=== PATIENT | female | born 1985 | race Caucasian/White ===

== ENCOUNTER → 2019-01-18 | Outpatient (CLI) | payer BC | END | disposition home or self-care (01) | LOC: LAB 15:00 | PROVIDERS: ATTEND Specialist | DX: R87.613 High grade squamous intraepithelial lesion on cytologic smear of cervix (HGSIL) (principal) ==

== ENCOUNTER → 2022-08-21 | Outpatient (CLI) | payer BC | END | disposition home or self-care (01) | LOC: LAB 12:21 | PROVIDERS: ATTEND Obstetrics & Gynecology Obstetrics | DX: N76.0 Acute vaginitis (principal) | CPT/HCPCS: 86695; 86696 ==

== ENCOUNTER → 2024-11-19 | Outpatient (CLI) | payer BC ==
[2024-11-19 12:08] LABS: Hemoglobin 12.2 g/dL (12.2-16.2); White Blood Cell 8.5 10^3/uL (4.4-10.8)
[2024-11-19 12:10] LABS: Hematocrit 35.4 % (36.0-46.0); Mean Corpuscular Hemoglobin 28.5 pg (28.0-32.0); Mean Corpuscular Hgb Conc. 34.6 g/dL (32.0-36.0); Mean Corpuscular Volume 82.3 fL (80.0-100.0)
[2024-11-19 12:53] LABS: Basophils % (manual) 0 (0.0-2.0); Myelocytes % 0; Promyelocytes % 0
[2024-11-19 13:21] LABS: Albumin 4.6 g/dL (3.2-4.8); Anion Gap 7 (5-15); Calcium 10.1 mg/dL (8.7-10.4); Carbon Dioxide 26 mmol/L (20-31); Chloride 105 mmol/L (98-107); Cholesterol 150 mg/dL (< 200); Glucose 97 mg/dL (74-106); HDL Cholesterol 40 mg/dL (40-59); LDL Cholesterol 93 mg/dL (< 100); Potassium 4.2 mmol/L (3.5-5.1); Sodium 138 mmol/L (136-145); Triglycerides 107 mg/dL (< 150)
[2024-11-19 13:22] LABS: Alanine Aminotransferase 55 U/L (7-40); Alkaline Phosphatase 122 U/L (46-116); Aspartate Aminotransferase 43 U/L (13-40); Bilirubin, Total 0.5 mg/dL (0.2-1.0); Blood Urea Nitrogen 9 mg/dL (9-23)
[2024-11-19 13:24] LABS: Folate (Folic Acid) 6.16 ng/mL (>5.38)
[2024-11-19 13:27] LABS: Band Neutrophils % (manual) 4; Blast Cells 2; Eosinophils % (manual) 1 (0-7); Lymphocytes % (manual) 21 (10.0-50.0); Metamyelocytes % 1; Monocytes % (manual) 46 (0-12); Reactive Lymphocytes 2
[2024-11-19 13:30] LABS: Platelet Count (auto) 21 10^3/uL (140-450); Platelet Estimate Markedly Decreased
== END | disposition home or self-care (01) ==
LOC: LAB 11:50
PROVIDERS: ATTEND Nurse Practitioner
DX: I10 Essential (primary) hypertension (principal); R73.9 Hyperglycemia, unspecified
CPT/HCPCS: 36415; 80053; 80061; 82306; 82607; 82746; 83036; 84443; 85007; 85027

== ENCOUNTER 2024-11-21 14:29 | Inpatient (IN) | payer BC ==
[~2024-11-21] VITALS: Ht 165.1 cm; Wt 63.8 kg
--- NOTE | 2024-11-21 15:38 | ED.PDOC ---
History of Present Illness HPI Comments 39Y F presents to ED with chief complaint back pain x1week. Additional symptoms include nausea and vomiting. Pt denies chest pain, SOB, diarrhea, and dysuria. Pt was provided Baclofen by PCP which helped alleviate the pain temporarily. However, pt states pain became worse on Friday. Pt's PCP also ordered a x-ray which came back with normal results. Pt is currently on menstrual cycle. Chief Complaint: Back Pain Time Seen by MD: 15:12 Primary Care Provider: BRENDA Fiore Notes: Nurses Notes, Medications, Allergies Allergies: Coded Allergies: NO KNOWN ALLERGIES (Unverified , 11/21/24) Home Meds No Active Prescriptions or Reported Meds Information Source: Patient Mode of Arrival: Ambulatory Severity: Moderate Timing: Weeks Duration: Since onset Past Medical History PAST MEDICAL HISTORY: Denies Surgical History: Denies all surgeries [employer] History: No Pertinent [employer] History Family History Family History: Unknown Social History Smoker: Non-Smoker Alcohol: Denies ETOH Use Drugs: Denies Drug Use Lives In: Home Constitutional: denies: chills, diaphoresis, fatigue, fever, malaise, sweats, weakness, others EENTM: denies: blurred vision, double vision, ear bleeding, ear discharge, ear drainage, ear pain, ear ringing, eye pain, eye redness, hearing loss, mouth pain, mouth swelling, nasal discharge, nose bleeding, nose congestion, nose pain, photophobia, tearing, throat pain, throat swelling, voice changes, others Respiratory: denies: cough, hemoptysis, orthopnea, SOB at rest, shortness of breath, SOB with excertion, stridor, wheezing, others Cardiovascular: denies: chest pain, dizzy spells, diaphoresis, Dyspnea on exertion, edema, irregular heart beat, left arm pain, lightheadedness, palpitations, PND, syncope, others Gastrointestinal: reports: nausea, vomiting; denies: abdomen distended, abdominal pain, blood streaked bowels, constipated, diarrhea, dysphagia, difficulty swallowing, hematemesis, melena, poor appetite, poor fluid intake, rectal bleeding, rectal pain, others Genitourinary: denies: abnormal vagina bleeding, burning, dyspareunia, dysuria, flank pain, frequency, hematuria, incontinence, pain, , vagina discharge, urgency, others Neurological: denies: dizziness, fainting, headache, left sided numbness, left sided weakness, numbness, paresthesia, pre-existing deficit, right sided numbness, right sided weakness, seizure, speech problems, tingling, tremors, weakness, others Musculoskeletal: reports: back pain; denies: gout, joint pain, joint swelling, muscle pain, muscle stiffness, neck pain, others Integumetry: denies: bruises, change in color, change in hair/nails, dryness, laceration, lesions, lumps, rash, wounds, others Allergic/Immunocompromised: denies: Difficulty Healing, Frequent Infections, Hives, Itching, others Hematologic/Lymphatic: denies: anemia, blood clots, easy bleeding, easy bruising, swollen glands, others Endocrine: denies: excessive hunger, excessive sweating, excessive thirst, excessive urination, flushing, intolerance to cold, intolerance to heat, unexplained weight gain, unexplained weight loss, others Psychiatric: denies: anxiety, bipolar disorder, depression, hopeless, panic disorder, schizophrenia, sleepless, suicidal, others All Other Systems: Reviewed and Negative Physical Exam General Appearance: Moderate Distress HEENT: Normal ENT Inspection, Pharynx Normal, TMs Normal Neck: Full Range of Motion, Non-Tender, Normal, Normal Inspection Respiratory: Chest Non-Tender, Lungs Clear, No Accessory Muscle Use, No Respiratory Distress, Normal Breath Sounds Cardiovascular: No Edema, No JVD, No Murmur, No Gallop, Normal Peripheral Pulses, Regular Rate/Rhythm Breast Exam: Deferred Gastrointestinal: No Organomegaly, Non Tender, No Pulsatile Mass, Normal Bowel Sounds, Soft Genitalia: Deferred Pelvic: Deferred Rectal: Deferred Extremities: No calf tenderness, Normal capillary refill, Normal inspection, Normal range of motion, Non-tender, No pedal edema Musculoskeletal : Apperance: Normal Neurologic: Alert, benefits administrator II-XII nml as Tested, No Motor Deficits, Normal Affect, Normal Mood, No Sensory Deficits Cerebellar Function: NOT DONE Reflexes: NOT DONE Skin: Dry, Normal Color, Warm Lymphatic: No Adenopathy Was a procedure done? Was a procedure done?: No Differential Dx Considerations may include: Pyelonephritis, musculoskeletal strain, intraabdominal pathology, cancer, diverticulitis X-Ray, Labs, Meds, VS Vital Signs Date Time Temp Pulse Resp B/P (MAP) Pulse Ox O2 Delivery O2 Flow Rate FiO2 12/29/24 20:00 99.1 119 26 124/78 (93) 99 99.1 11/21/24 19:20 117 24 117/81 11/21/24 19:19 117 24 117/81 (93) 99 11/21/24 19:04 121 18 120/86 11/21/24 18:39 122 22 120/80 11/21/24 18:23 98 22 100 Nasal Cannula* 2 28 11/21/24 17:54 110 22 112/80 11/21/24 17:14 97.3 134 18 111/80 (90) 98 97.3 11/21/24 14:54 98.5 134 24 112/80 (91) 99 Lab Test 11/21/24 20:48 11/21/24 15:38 11/21/24 15:02 Range/Units White Blood Count 6.8 # 13.0 #H 4.4-10.8 10^3/uL Red Blood Count 3.49 L 4.30 4.0-5.20 10^6/uL Hemoglobin 10.1 #L 12.4 12.2-16.2 g/dL Hematocrit 28.8 #L 35.9 L 36.0-46.0 % Mean Corpuscular Volume 82.5 83.6 80.0-100.0 fL Mean Corpuscular Hemoglobin 29.0 28.8 28.0-32.0 pg Mean Corpuscular Hemoglobin Concent 35.1 34.4 32.0-36.0 g/dL Red Cell Distribution Width 13.2 12.8 11.8-14.3 % Platelet Count 10 *L 17 *L 140-450 10^3/uL Mean Platelet Volume 10.3 7.0 6.9-10.8 fL Neutrophils (%) (Auto) 12.4 L 37.0-80.0 % Lymphocytes (%) (Auto) 9.2 L 10.0-50.0 % Monocytes (%) (Auto) 77.9 H 0.0-12.0 % Eosinophils (%) (Auto) 0.4 0.0-7.0 % Basophils (%) (Auto) 0.1 0.0-2.0 % Neutrophils # (Auto) 0.8 L 1.6-8.6 10 ^3/uL Lymphocytes # (Auto) 0.6 0.4-5.4 10 ^3/uL Monocytes # (Auto) 5.3 H 0-1.3 10 ^3/uL Eosinophils # (Auto) 0 0-0.8 10 ^3/uL Basophils # (Auto) 0 0-0.2 10 ^3/uL Nucleated Red Blood Cells 0.7 2.0 % Differential Total Cells Counted 100.0 100 Neutrophils % (Manual) 14 L 37.0-80.0 Band Neutrophils % (Manual) 3 Lymphocytes % (Manual) 47 10.0-50.0 Monocytes % (Manual) 2 0-12 Eosinophils % (Manual) 0 0-7 Basophils % (Manual) 0 0.0-2.0 Metamyelocytes % (manual) 0 Myelocytes % (Manual) 0 Promyelocytes % (Manual) 0 Blast Cells % (Manual) 34 Reactive Lymphocytes 0 Platelet Estimate Markedly decreased Sodium Level 140 136-145 mmol/L Potassium Level 4.4 3.5-5.1 mmol/L Chloride Level 107 98-107 mmol/L Carbon Dioxide Level 21 20-31 mmol/L Anion Gap 12 5-15 Blood Urea Nitrogen 13 9-23 mg/dL Creatinine 1.11 #H 0.550-1.02 mg/dL Glomerular Filtration Rate Calc 65 >90 mL/min BUN/Creatinine Ratio 11.7 10.0-20.0 Serum Glucose 159 H 74-106 mg/dL Calcium Level 10.8 H 8.7-10.4 mg/dL Total Bilirubin 0.7 0.2-1.0 mg/dL Aspartate Amino Transferase (AST) 64 H 13-40 U/L Alanine Aminotransferase (ALT) 48 H 7-40 U/L Alkaline Phosphatase 143 H 46-116 U/L Lactate Dehydrogenase 1104 H 120-246 U/L Total Protein 7.4 5.7-8.2 g/dL Albumin 5.1 H 3.2-4.8 g/dL Lipase 26 12-53 U/L Urine Color Light-orange Yellow Urine Clarity Turbid H Clear Urine pH 6.0 5.0-9.0 Urine Specific [place] 1.036 H 1.001-1.035 Urine Protein 2+ H Negative Urine Ketones 2+ H Negative Urine Blood 3+ H Negative /uL Urine Nitrite Negative Negative Urine Bilirubin Negative Negative Urine Urobilinogen 2 H Negative mg/dL Urine Leukocyte Esterase Negative Negative /uL Urine RBC 729 0 - 4 /hpf Urine WBC 18 0 - 5 /hpf Urine Squamous Epithelial Cells Few <5 /hpf Urine Bacteria None seen None Seen /hpf Urine Hyaline Casts Many 0 - 2 /lpf Urine Mucus Few None Seen Urine Glucose Trace Normal mg/dL Urine Test Negative Negative Urine Opiates Screen Neg NEGATIVE Urine Fentanyl Screen Neg NEGATIVE Urine Barbiturates Screen Neg NEGATIVE Urine Phencyclidine Screen Neg NEGATIVE Urine Amphetamines Screen Neg NEGATIVE Urine Benzodiazepines Screen Neg NEGATIVE Urine Cocaine Screen Neg NEGATIVE Urine Cannabinoids Screen Neg NEGATIVE [place] [address] Ph: [phone] DIAGNOSTIC IMAGING Diagnostic Imaging Report : [id number] Signed PATIENT: VICTOR M YUSUF ACCT: [id number] UNIT: [id number] : 1985 LOC: ER ROOM / BED: / AGE / SEX: 39 / F ADM STATUS: REG ER SERVICE 1824 ORDERING PHYSICIAN: KHADAR TRAORE MD PROCEDURE(s): ABPL - CT AB PEL WO CON-NO ORAL OR IV REASON: severe lower back pain ORDER NUMBER(s): [id number], ACCESSION NUMBER(s): [id number] Exam: CT CT AB PEL WO CON-NO ORAL OR IV History: severe lower back pain Comparison Study: None available at time of dictation. TECHNIQUE: Multidetector CT of the abdomen was performed from lung bases to pubic symphysis. Imaging was performed without IV contrast. Axial, coronal and sagittal multiplanar reformats were obtained from the axial data set by the technologist. No sagittal or coronal reconstructions. Radiation Dose Information: CT Dose: CTDI volume is 6.83 mGy. Dose-length product is 359.51 mGy*cm FINDINGS: Evaluation of solid organs is limited due to lack of intravenous contrast use. Findings: Lung Bases: No acute or significant lung base finding. Normal heart size. No pleural or pericardial effusion. Liver: The liver is normal in size. No focal lesions. Gallbladder and Biliary Tree: Thin layer of radiopaque material posteriorly in the gallbladder may represent sludge or small stones Spleen: Unremarkable Pancreas: The pancreas is grossly normal in appearance. Adrenal Glands: Unremarkable Kidneys: Kidneys are grossly normal without calculi or hydronephrosis. Bladder: Grossly unremarkable for degree of distention. Bowel: The stomach is grossly normal in appearance. Small bowel and colon are normal in caliber and distribution. The appendix is not visualized; however, no secondary findings of acute appendicitis identified. Ascites: Absent Lymphadenopathy: No mesenteric, retroperitoneal or periportal lymphadenopathy. Abdominal Wall and Mesentery: Unremarkable. Vasculature: The visualized abdominal aorta is normal in size and caliber. Evaluation of abdominal and pelvic vessels is limited due to lack of intravenous contrast. Pelvic Organs: Unremarkable Musculoskeletal: No aggressive focal bony lesions, acute fractures or dislocation. Soft tissues: Unremarkable IMPRESSION: 1. Thin layer of radiopaque material layering posteriorly in the gallbladder may represent small stones or sludge. Radiation optimization: All CT scans at this facility use at least one of these dose optimization techniques: automated exposure control mA and/or kV adjustment per patient size (includes targeted exams where dose is matched to clinical indication) or iterative reconstruction. ATED BY: LATANYA GALVAN Jr., DO DICTATED DATE/TIME: 11/21/241901 SIGNED BY: LATANYA GALVAN Jr., SIGNED DATE/TIME: 11/21/241901 CC: Time of 1ST Reevaluation: 15:42 Reevaluation 1ST: Unchanged Patient Education/Counseling: Diagnosis, Treatment Family Education/Counseling: No Family Present Departure 1 Departure Time of Disposition: 21:52 (Patient with concern for malignancy will admit for further workup) Impression: Primary Impression: Weakness Additional Impressions: Thrombocytopenia Abdominal pain Qualified Codes: R10.84 - Generalized abdominal pain Disposition: ADMITTED INPATIENT Admit to: Med Surg Condition: Serious e-Prescriptions No Active Prescriptions or Reported Meds Critical Care Note Critical Care Time?: No Stability Stability form required: No Heart Score Heart Score: Heart Score Response (Comments) Value History N/A 0 EKG N/A 0 Age N/A 0 Risk Factors N/A 0 Troponin N/A 0 Total 0 I personally scribed for KHADAR TRAORE MD ([facility] on 11/21/24 at 15:38. Electronically submitted by Viki Alfaro ([email or web address]). I personally scribed for KHADAR TRAORE MD ([facility]) on 11/21/24 at 19:36. Electronically submitted by Viki Alfaro ([facility]). KHADAR TRAORE MD Nov 21, 2024 15:38
[2024-11-21 15:42] LABS: Urine Bacteria None Seen /hpf (None Seen)
[2024-11-21 16:09] LABS: Urine Blood 3+ /uL (Negative); Urine Clarity Turbid (Clear); Urine Color Light-Orange (Yellow); Urine Hyaline Cast MANY /lpf (0 - 2); Urine Mucus FEW (None Seen); Urine Protein, UAD 2+ (Negative); Urine Specific Gravity 1.036 (1.001-1.035); Urine Urobilinogen 2 mg/dL (Negative); Urine WBC 18 /hpf (0 - 5)
[2024-11-21 16:12] LABS: Anion Gap 12 (5-15); BUN/Creatinine Ratio 11.7 (10.0-20.0); Bilirubin, Total 0.7 mg/dL (0.2-1.0); Blood Urea Nitrogen 13 mg/dL (9-23); Carbon Dioxide 21 mmol/L (20-31); Chloride 107 mmol/L (98-107); Lipase 26 U/L (12-53); Potassium 4.4 mmol/L (3.5-5.1); Sodium 140 mmol/L (136-145); Total Protein 7.4 g/dL (5.7-8.2)
[2024-11-21 16:14] LABS: Alanine Aminotransferase 48 U/L (7-40); Albumin 5.1 g/dL (3.2-4.8); Alkaline Phosphatase 143 U/L (46-116); Aspartate Aminotransferase 64 U/L (13-40); Calcium 10.8 mg/dL (8.7-10.4); Glucose 159 mg/dL (74-106)
[2024-11-21 16:19] LABS: Mean Corpuscular Volume 83.6 fL (80.0-100.0)
[2024-11-21 16:21] LABS: Hematocrit 35.9 % (36.0-46.0); Hemoglobin 12.4 g/dL (12.2-16.2); Mean Corpuscular Hemoglobin 28.8 pg (28.0-32.0); Mean Corpuscular Hgb Conc. 34.4 g/dL (32.0-36.0); Red Cell Distribution Width 12.8 % (11.8-14.3)
[2024-11-21 16:30] LABS: Basophils % (manual) 0 (0.0-2.0); Eosinophils % (manual) 0 (0-7); Metamyelocytes % 0; Platelet Count (auto) 17 10^3/uL (140-450); Promyelocytes % 0; Reactive Lymphocytes 0
[2024-11-21 16:55] LABS: Platelet Estimate Markedly Decreased
[2024-11-21] MEDS: SODIUM CHLORIDE 0.9% 1,000 ML IV ONE (17:53)
[2024-11-21] MEDS: ONDANSETRON HCL 4 MG/2 ML VIAL IV ONE (17:53)
[2024-11-21] MEDS: MORPHINE SULFATE 4 MG/ML SYR/VIAL IV ONE (17:54)
[2024-11-21 18:23] VITALS: PULSE 98; RESP 22; O2SAT 100
[2024-11-21] MEDS: HYDROmorphone HCL 2 MG/ML VL/or syr IV ONE (19:04)
--- NOTE | 2024-11-21 19:04 | DVH ---
Exam: CT CT AB PEL WO CON-NO ORAL OR IV History: severe lower back pain Comparison Study: None available at time of dictation. TECHNIQUE: Multidetector CT of the abdomen was performed from lung bases to pubic symphysis. Imaging was performed without IV contrast. Axial, coronal and sagittal multiplanar reformats were obtained fr om the axial data set by the technologist. No sagittal or coronal reconstructions. Radiation Dose Information: CT Dose: CTDI volume is 6.83 mGy. Dose-length product is 359.51 mGy*cm FINDINGS: Evaluation of solid organs is limited due to lack of intravenous contrast use. Findings: Lung Bases: No acute or significant lung base finding. Normal heart size. No pleural or pericardial effusion. Liver: The liver is normal in size. No focal lesions. Gallbladder and Biliary Tree: Thin layer of radiopaque material posteriorly in the gallbladder may re present sludge or small stones Spleen: Unremarkable Pancreas: The pancreas is grossly normal in appearance. Adrenal Glands: Unremarkable Kidneys: Kidneys are grossly normal without calculi or hydronephrosis. Bladder: Grossly unremarkable for degree of distention. Bowel: The stomach is grossly normal in appearance. Small bowel and colon are normal in caliber and d istribution. The appendix is not visualized; however, no secondary findings of acute appendicitis id entified. Ascites: Absent Lymphadenopathy: No mesenteric, retroperitoneal or periportal lymphadenopathy. Abdominal Wall and Mesentery: Unremarkable. Vasculature: The visualized abdominal aorta is normal in size and caliber. Evaluation of abdominal a nd pelvic vessels is limited due to lack of intravenous contrast. Pelvic Organs: Unremarkable Musculoskeletal: No aggressive focal bony lesions, acute fractures or dislocation. Soft tissues: Unremarkable IMPRESSION: 1. Thin layer of radiopaque material layering posteriorly in the gallbladder may represent small ston es or sludge. Radiation optimization: All CT scans at this facility use at least one of these dose optimization natalia hniques: automated exposure control mA and/or kV adjustment per patient size (includes targeted exam s where dose is matched to clinical indication) or iterative reconstruction.
[2024-11-21] MEDS: SODIUM CHLORIDE 0.9% 2,000 ML IV ONE (20:21)
[2024-11-21 21:01] LABS: Eosinophils # (auto) 0 10 ^3/uL (0-0.8); Hemoglobin 10.1 g/dL (12.2-16.2); Nucleated Red Blood Cells % 0.7 %
[2024-11-21 21:03] LABS: Basophils # (auto) 0 10 ^3/uL (0-0.2); Basophils % (auto) 0.1 % (0.0-2.0); Eosinophils % (auto) 0.4 % (0.0-7.0); Hematocrit 28.8 % (36.0-46.0); Lymphocytes # (auto) 0.6 10 ^3/uL (0.4-5.4); Lymphocytes % (auto) 9.2 % (10.0-50.0); Mean Corpuscular Hgb Conc. 35.1 g/dL (32.0-36.0); Mean Corpuscular Volume 82.5 fL (80.0-100.0); Monocytes # (auto) 5.3 10 ^3/uL (0-1.3); Neutrophils # (auto) 0.8 10 ^3/uL (1.6-8.6); Neutrophils % (auto) 12.4 % (37.0-80.0); Red Blood Cells 3.49 10^6/uL (4.0-5.20); Red Cell Distribution Width 13.2 % (11.8-14.3); White Blood Cell 6.8 10^3/uL (4.4-10.8)
[2024-11-21 21:05] LABS: Monocytes % (auto) 77.9 % (0.0-12.0)
[2024-11-21 21:09] LABS: Platelet Count (auto) 10 10^3/uL (140-450)
[2024-11-21] MEDS: CYCLOBENZAPRINE HCL 10 MG TAB PO ONE (21:36)
[2024-11-21 22:07] LABS: Amphetamine Screen, Urine Neg (NEGATIVE); Barbiturate Scree,Urine Neg (NEGATIVE); Benzodiazephine Screen, Urine Neg (NEGATIVE); Cannabinoid Screen, Urine Neg (NEGATIVE); Cocaine Screen, Urine Neg (NEGATIVE); Opiate Scree,Urine Neg (NEGATIVE); Phencyclidine Screen, Urine Neg (NEGATIVE)
[2024-11-21 22:30] LABS: INR 1.08 (0.9-1.15); Partial Thromboplastin Time 29.5 SEC (24.5-34.5); Prothrombin Time 11.4 sec (9.3-11.8)
[2024-11-21 22:39] VITALS: PULSE 109; RESP 24; O2SAT 100
[2024-11-21] MEDS: cefTRIAXone 1GM/50ML D5W 50 ML IV ONE (23:47)
[2024-11-22] VITALS (11 sets, daily range): BP systolic 114–130; BP diastolic 67–87; PULSE 119–143; RESP 18–22; TEMP 38.2; O2SAT 92–98
[2024-11-22 00:31] LABS: Erythrocyte Sedimentation Rate 44 mm/hr (0-20)
[2024-11-22] MEDS: HYDROmorphone HCL 2 MG/ML VL/or syr IV ONE (01:07)
[2024-11-22 01:14] LABS: COVID19 ANTIGEN SOFIA FIA NEGATIVE (NEGATIVE); Rapid Influenza A Negative (Negative); Rapid Influenza B Negative (Negative)
--- NOTE | 2024-11-22 03:39 | DVHHPRES ---
History of Present Illness Resident Creating Document: KASSYPavelJORDAN ZhaoTHI RESIDENT History of Present Illness Patient is a 39-year-old female with no significant past medical history came to the ED with a chief complaint of worsening back pain since the last 7 days. Patient reports about a week ago she started having spasmodic lower back pain which was initially tolerable and of the week got worse and yesterday it was intolerable for which she came to the ER. Patient also reports getting easily bruised which she has noticed since the past about 2 weeks and petechiae on her legs and face. Patient's had her menstrual period started yesterday reports heavy bleeding. She reports history of nosebleeds once in a blue perez ( 5-6 months ). Patient denied history of weight loss, night sweats, fever. Patient reports to be in single relationship her and has 2 kids. Past medical history: None Past surgical history: None Social history: Patient was with , has 2 kids and denies smoking, alcohol, drug use Home medications: None Review of Systems Review of Systems Patient complains of intermittent severe spasmodic lower back pain. Reports she has soaked about 5-6 pads since yesterday when she started her menstrual cycle. Denies hematochezia or melena. Denies blood in vomitus. Denies headache, dizziness, shortness of breath, chest pain. Allergies: Coded Allergies: NO KNOWN ALLERGIES (Unverified , 11/21/24) Medications Current Medications Medications Dose Ordered Sig/Yris Route Start Time Stop Time Status Last Admin Dose Admin Hydromorphone HCl 0.5 mg Q4HPRN PRN IV 11/22/24 01:45 Morphine Sulfate 2 mg Q4HPRN PRN IV 11/22/24 01:45 Exam Vital Signs Vital Signs Date Time Temp Pulse Resp B/P (MAP) Pulse Ox O2 Delivery O2 Flow Rate FiO2 11/22/24 03:04 98.9 119 18 122/85 98.9 11/21/24 23:51 94 11/21/24 22:39 Room Air* 0 21 Exam Physical Examination Constitutional: Patient was alert and oriented to time, place and person and appears to be in [id number] distress because of the lower back pain. Gen - no pallor, no icterus, no cyanosis, no clubbing, no LAD, no edema . Skin - Patients skin is warm and dry, petechiae on legs and face seen less than 0.5 cm in size HEENT - normocephalic, atraumatic, dry mucous membranes. Neck - full ROM, no LAD, no JVD Pulmonary - B/L vesicular breath sounds. no crackles , no wheezing, no stridor. cardiovascular - normal S1,S2 heard. no murmurs heard. peripheral pulses radial 2+, pedal 2+. GI - soft abdomen without tenderness to palpation . no hepatospleenomegaly. Bowel sounds normoactive Neurological - Bilateral upper extremity strength 5/5, bilateral lower extremity strength 5/5, no facial droop, normal speech, no tremor, no sensory deficiets. ## patient has minimal point tenderness in the lower back in the middle and in the paraspinal muscles. Straight leg raise test is negative Labs/Xrays Labs Test 11/22/24 00:45 11/22/24 00:14 11/21/24 23:45 11/21/24 21:53 Range/Units C-Reactive Protein High Sensitivity 9.42 H <1.0 mg/dL Influenza Type A Antigen Negative Negative Influenza Type B Antigen Negative Negative SARS-CoV-2 Antigen (Rapid) Negative NEGATIVE Erythrocyte Sedimentation Rate 44 H 0-20 mm/hr Prothrombin Time 11.4 9.3-11.8 sec Prothrombin Time INR 1.08 0.9-1.15 Activated Partial Thromboplast Time 29.5 24.5-34.5 SEC Test 11/21/24 20:48 11/21/24 15:38 11/21/24 15:02 Range/Units White Blood Count 6.8 # 4.4-10.8 10^3/uL Red Blood Count 3.49 L 4.0-5.20 10^6/uL Hemoglobin 10.1 #L 12.2-16.2 g/dL Hematocrit 28.8 #L 36.0-46.0 % Mean Corpuscular Volume 82.5 80.0-100.0 fL Mean Corpuscular Hemoglobin 29.0 28.0-32.0 pg Mean Corpuscular Hemoglobin Concent 35.1 32.0-36.0 g/dL Red Cell Distribution Width 13.2 11.8-14.3 % Platelet Count 10 *L 140-450 10^3/uL Mean Platelet Volume 10.3 6.9-10.8 fL Neutrophils (%) (Auto) 12.4 L 37.0-80.0 % Lymphocytes (%) (Auto) 9.2 L 10.0-50.0 % Monocytes (%) (Auto) 77.9 H 0.0-12.0 % Eosinophils (%) (Auto) 0.4 0.0-7.0 % Basophils (%) (Auto) 0.1 0.0-2.0 % Neutrophils # (Auto) 0.8 L 1.6-8.6 10 ^3/uL Lymphocytes # (Auto) 0.6 0.4-5.4 10 ^3/uL Monocytes # (Auto) 5.3 H 0-1.3 10 ^3/uL Eosinophils # (Auto) 0 0-0.8 10 ^3/uL Basophils # (Auto) 0 0-0.2 10 ^3/uL Nucleated Red Blood Cells 0.7 % Differential Total Cells Counted 100.0 100 Neutrophils % (Manual) 6 L 37.0-80.0 Band Neutrophils % (Manual) 6 Lymphocytes % (Manual) 45 10.0-50.0 Monocytes % (Manual) 42 H 0-12 Eosinophils % (Manual) 0 0-7 Basophils % (Manual) 0 0.0-2.0 Metamyelocytes % (manual) 0 Myelocytes % (Manual) 1 Promyelocytes % (Manual) 0 Blast Cells % (Manual) 0 Reactive Lymphocytes 0 Platelet Estimate Markedly decreased Sodium Level 140 136-145 mmol/L Potassium Level 4.4 3.5-5.1 mmol/L Chloride Level 107 98-107 mmol/L Carbon Dioxide Level 21 20-31 mmol/L Anion Gap 12 5-15 Blood Urea Nitrogen 13 9-23 mg/dL Creatinine 1.11 #H 0.550-1.02 mg/dL Glomerular Filtration Rate Calc 65 >90 mL/min BUN/Creatinine Ratio 11.7 10.0-20.0 Serum Glucose 159 H 74-106 mg/dL Calcium Level 10.8 H 8.7-10.4 mg/dL Total Bilirubin 0.7 0.2-1.0 mg/dL Aspartate Amino Transferase (AST) 64 H 13-40 U/L Alanine Aminotransferase (ALT) 48 H 7-40 U/L Alkaline Phosphatase 143 H 46-116 U/L Lactate Dehydrogenase 1104 H 120-246 U/L Total Protein 7.4 5.7-8.2 g/dL Albumin 5.1 H 3.2-4.8 g/dL Lipase 26 12-53 U/L Urine Color Light-orange Yellow Urine Clarity Turbid H Clear Urine pH 6.0 5.0-9.0 Urine Specific [place] 1.036 H 1.001-1.035 Urine Protein 2+ H Negative Urine Ketones 2+ H Negative Urine Blood 3+ H Negative /uL Urine Nitrite Negative Negative Urine Bilirubin Negative Negative Urine Urobilinogen 2 H Negative mg/dL Urine Leukocyte Esterase Negative Negative /uL Urine RBC 729 0 - 4 /hpf Urine WBC 18 0 - 5 /hpf Urine Squamous Epithelial Cells Few <5 /hpf Urine Bacteria None seen None Seen /hpf Urine Hyaline Casts Many 0 - 2 /lpf Urine Mucus Few None Seen Urine Glucose Trace Normal mg/dL Urine Test Negative Negative Urine Opiates Screen Neg NEGATIVE Urine Fentanyl Screen Neg NEGATIVE Urine Barbiturates Screen Neg NEGATIVE Urine Phencyclidine Screen Neg NEGATIVE Urine Amphetamines Screen Neg NEGATIVE Urine Benzodiazepines Screen Neg NEGATIVE Urine Cocaine Screen Neg NEGATIVE Urine Cannabinoids Screen Neg NEGATIVE Assessment/Plan Assessment/Plan # Thrombocytopenia likely ?Secondary Acute Leukemia? # SIRS positive - platelet count [id number] - 1 unit pheresis platelets given - CBC showed monocytosis - elevated ESR and CRP - elevated lactate dehydrogenase - acute hepatitis panel pending - CYNDI panel pending - haptoglobin pending - direct Alonso test - peripheral blood smear pending - HIV pending - Heme-Onc consulted # Lower back pain likely musculoskeletal - CT abdomen pelvis without contrast shows no aggressive focal bony lesions, acute fractures or dislocations - lumbar CT/MRI can be done - patient given Flexeril - morphine for moderate pain - Dilaudid for severe pain the patient reports nothing else works # Normocytic normochromic anemia - monitor H&H - iron panel pending Goals of care discussed with the patient and the for over 20 minutes. Full code Plan discussed with Dr. Benavidez Plan discussed with: Patient My Orders Orders - FRANK ALMONTE RESIDENT Procedure Category Date Status Time Admit ADMIT 11/21/24 Transmitted 21:29 Notify Of Changes [facility] 11/21/24 In Process From Base 21:29 Emergency Dysrhythmia [facility] 11/21/24 In Process Protocol 21:29 Rn Admit For [facility] 11/21/24 In Process 24 Hours 21:29 Code Status CODE 11/21/24 Transmitted 21:35 Stool Occult Blood LAB 11/21/24 Logged 21:36 Ebv Acute Infection LAB 11/21/24 In Process Antibodies 23:29 Hydromorphone Hcl Inj PHA 11/22/24 In Process (Dilaudid Innjecti 01:45 Morphine Sulfate PHA 11/22/24 In Process Injection 01:45 Cyndi; Comprehensive LAB 11/22/24 Logged Panel 04:00 Acute Hepatitis Panel LAB 11/22/24 Logged 04:00 * Hematology/Oncology CONS 11/22/24 Transmitted Consult 01:43 Complete Blood Count LAB 11/22/24 Logged 04:00 Comprehensive LAB 11/22/24 Logged Metabolic Panel 04:00 Date of Service: Nov 21, 2024 Billing Provider: ROOSEVELT BENAVIDEZ MD Common Visit Codes: [id number] INP/OBS CARE (HIGH) FRANK ALMONTE RESIDENT Nov 22, 2024 03:39 ROOSEVELT BENAVIDEZ MD Nov 23, 2024 10:40
[2024-11-22] MEDS: MORPHINE SULFATE INJ 2 MG/ml SYRG IV PRN (03:47)
[2024-11-22] MEDS: HYDROMORPHONE HCL 1 MG/ML INJ IV PRN ×2 (05:37→11:58)
[2024-11-22] MEDS: SODIUM CHLORIDE 0.9% 1,000 ML IV ONE (05:41)
[2024-11-22 06:49] LABS: Red Blood Cells 2.97 10^6/uL (4.0-5.20); Red Cell Distribution Width 13.1 % (11.8-14.3)
[2024-11-22 06:52] LABS: Hematocrit 24.8 % (36.0-46.0); Hemoglobin 8.6 g/dL (12.2-16.2); Mean Corpuscular Hemoglobin 28.8 pg (28.0-32.0); Mean Corpuscular Hgb Conc. 34.6 g/dL (32.0-36.0); Mean Corpuscular Volume 83.3 fL (80.0-100.0); White Blood Cell 3.4 10^3/uL (4.4-10.8)
[2024-11-22 06:58] LABS: Platelet Count (auto) 10 10^3/uL (140-450)
[2024-11-22 06:59] LABS: Basophils % (manual) 0 (0.0-2.0); Eosinophils % (manual) 0 (0-7); Metamyelocytes % 0; Myelocytes % 0; Promyelocytes % 0; Reactive Lymphocytes 0
[2024-11-22 07:27] LABS: Albumin 3.8 g/dL (3.2-4.8); Anion Gap 10 (5-15); BUN/Creatinine Ratio 15.8 (10.0-20.0); Bilirubin, Total 0.4 mg/dL (0.2-1.0); Blood Urea Nitrogen 15 mg/dL (9-23); Calcium 8.7 mg/dL (8.7-10.4); Carbon Dioxide 21 mmol/L (20-31); Potassium 4.4 mmol/L (3.5-5.1); Sodium 143 mmol/L (136-145); Total Protein 5.7 g/dL (5.7-8.2)
[2024-11-22 07:29] LABS: Alanine Aminotransferase 46 U/L (7-40); Alkaline Phosphatase 246 U/L (46-116); Aspartate Aminotransferase 780 U/L (13-40); Chloride 112 mmol/L (98-107); Glucose 137 mg/dL (74-106)
[2024-11-22 08:49] LABS: % Iron Saturation 54.1 % (15-50)
--- NOTE | 2024-11-22 09:01 | DVH ---
CLINICAL INFORMATION: Abnormal findings on CT. TECHNIQUE: Heavily T2-weighted MRCP images were obtained. 3D MRCP images were created. COMPARISON: CT dated 11/21/2024. FINDINGS: Layering mild T2 hyperintense signal in the dependent portions of the gallbladder, likely s ludge. Gallbladder is mildly to moderately distended. Common bile duct is normal in diameter, measuri ng up to 4 mm. No filling defect or stricture identified in the common bile duct on MRCP. Pancreatic duct is unremarkable. The liver, spleen, adrenal glands, kidneys, and pancreas appear grossly unrema rkable. IMPRESSION: 1. Likely sludge in the gallbladder. Gallbladder is mildly to moderately distended. Correlate with cl inical findings. If clinically indicated, ultrasound may be helpful to further characterize. 2. No biliary ductal dilatation. No filling defect or stricture identified in the common bile duct o n MRCP.
[2024-11-22 09:42] LABS: Platelet Estimate Markedly Decreased; Smudge Cells 1 /100 WBC
[2024-11-22] MEDS ORDERED: fentaNYL CITRATE 100 MCG/2 ML VL IV ONE (10:00)
[2024-11-22] MEDS ORDERED: MIDAZOLAM HCL 2MG/2ML 2ml VIAL (1mg/ml) IV ONE (10:00)
--- NOTE | 2024-11-22 10:00 | DVHPN2 ---
Progress Note Date Seen: Nov 22, 2024 Medical Necessity Reason Pt with a Central, PICC or Fol: No Subjective Patient reports: No new complaints Review of Systems: HEENT:Normal, CVS:Normal, RESPIRATORY:Normal, GI:Normal, :Normal, MSK:Normal, NEURO:Normal Objective vital signs Vital Sign Date Time Temp Pulse Resp B/P (MAP) Pulse Ox O2 Delivery O2 Flow Rate FiO2 11/22/24 09:51 126 20 122/83 11/22/24 04:10 99.7 99.7 11/22/24 04:00 97 11/22/24 02:56 Room Air* 0 21 Total Intake and Output 11/21/24 11/21/24 11/22/24 15:00 23:00 07:00 Intake Total 2000 ml 500 ml Balance 2000 ml 500 ml medications Current Medications Medications Dose Ordered Sig/Yris Route Start Time Stop Time Status Last Admin Dose Admin Hydromorphone HCl 0.5 mg Q4HPRN PRN IV 11/22/24 01:45 11/22/24 09:51 0.5 MG Morphine Sulfate 2 mg Q4HPRN PRN IV 11/22/24 01:45 11/22/24 03:47 2 MG Methylprednisolone Sodium Succinate 125 mg Q8HR IV 11/22/24 14:00 UNV Examination: GENERAL:Normal, HEENT:Normal, NECK:Normal, LUNGS:Normal, CVS:Normal, ABDOMEN:Normal, MSK:Normal, SKIN:Normal, NEURO:Normal, :Normal laboratory and microbiology Laboratory Tests 11/22/24 05:22 Test 11/22/24 05:22 Range/Units Serum Glucose 137 H 74-106 mg/dL Problem List/Assessment/Plan Problem List/Assessment/Plan #1 severe thrombocytopenia/ pancytopenia: iv steroids, ivf, bone marrrow #2 back pain: iv dilaudid #3 transaminitis: monitor Plan discussed with: Patient Date of Service: Nov 22, 2024 Billing Provider: DIEGO COYLE MD Common Visit Codes: 82952-MELHVBLEUT INP/OBS CARE(HIGH) DIEGO COYLE MD Nov 22, 2024 10:00
[2024-11-22 11:14] LABS: Band Neutrophils % (manual) 3
[2024-11-22 11:15] LABS: Lymphocytes % (manual) 47 (10.0-50.0); Monocytes % (manual) 2 (0-12)
[2024-11-22] MEDS ORDERED: ONDANSETRON HCL 4 MG/2 ML VIAL IV PRN (11:15)
[2024-11-22 11:16] LABS: Blast Cells 34; Myelocytes % 0
[2024-11-22 11:23] LABS: Band Neutrophils % (manual) 6
[2024-11-22 11:24] LABS: Blast Cells 35; Lymphocytes % (manual) 32 (10.0-50.0); Monocytes % (manual) 6 (0-12)
--- NOTE | 2024-11-22 11:36 | DVHDS2 ---
Discharge Summary Date of Admission Nov 21, 2024 at 21:29 Date of Discharge: Nov 22, 2024 Labs/Diagnostic Data: Laboratory Results Test 11/22/24 10:37 11/22/24 05:22 11/22/24 00:45 11/22/24 00:14 White Blood Count 3.4 10^3/uL (4.4-10.8) Red Blood Count 2.97 10^6/uL (4.0-5.20) Hemoglobin 8.6 g/dL (12.2-16.2) Hematocrit 24.8 % (36.0-46.0) Mean Corpuscular Volume 83.3 fL (80.0-100.0) Mean Corpuscular Hemoglobin 28.8 pg (28.0-32.0) Mean Corpuscular Hemoglobin Concent 34.6 g/dL (32.0-36.0) Red Cell Distribution Width 13.1 % (11.8-14.3) Platelet Count 10 10^3/uL (140-450) Mean Platelet Volume 7.6 fL (6.9-10.8) Neutrophils (%) (Auto) % (37.0-80.0) Lymphocytes (%) (Auto) % (10.0-50.0) Monocytes (%) (Auto) % (0.0-12.0) Basophils (%) (Auto) % (0.0-2.0) Neutrophils # (Auto) 10 ^3/uL (1.6-8.6) Lymphocytes # (Auto) 10 ^3/uL (0.4-5.4) Monocytes # (Auto) 10 ^3/uL (0-1.3) Differential Total Cells Counted 100.0 (100) Neutrophils % (Manual) 21 (37.0-80.0) Band Neutrophils % (Manual) 6 Lymphocytes % (Manual) 32 (10.0-50.0) Monocytes % (Manual) 6 (0-12) Eosinophils % (Manual) 0 (0-7) Basophils % (Manual) 0 (0.0-2.0) Metamyelocytes % (manual) 0 Myelocytes % (Manual) 0 Promyelocytes % (Manual) 0 Blast Cells % (Manual) 35 Nucleated Red Blood Cells 2.0 % Reactive Lymphocytes 0 Smudge Cells 1 /100 WBC Platelet Estimate Markedly decreased Reticulocyte Count (auto) 0.41 % (0.5-1.5) Sodium Level 143 mmol/L (136-145) Potassium Level 4.4 mmol/L (3.5-5.1) Chloride Level 112 mmol/L (98-107) Carbon Dioxide Level 21 mmol/L (20-31) Anion Gap 10 (5-15) Blood Urea Nitrogen 15 mg/dL (9-23) Creatinine 0.95 mg/dL (0.550-1.02) Glomerular Filtration Rate Calc 78 mL/min (>90) BUN/Creatinine Ratio 15.8 (10.0-20.0) Serum Glucose 137 mg/dL (74-106) Calcium Level 8.7 mg/dL (8.7-10.4) Iron Level 120 ug/dL (50-170) Total Iron Binding Capacity 222 ug/dL (250-425) Percent Iron Saturation 54.1 % (15-50) Total Bilirubin 0.4 mg/dL (0.2-1.0) Aspartate Amino Transferase (AST) 780 U/L (13-40) Alanine Aminotransferase (ALT) 46 U/L (7-40) Alkaline Phosphatase 246 U/L (46-116) Total Protein 5.7 g/dL (5.7-8.2) Albumin 3.8 g/dL (3.2-4.8) HIV (1&2) Antibody Negative (Negative) C-Reactive Protein High Sensitivity 9.42 mg/dL (<1.0) Test 11/21/24 23:45 11/21/24 21:53 11/21/24 20:48 11/21/24 15:38 Influenza Type A Antigen Negative (Negative) Influenza Type B Antigen Negative (Negative) SARS-CoV-2 Antigen (Rapid) Negative (NEGATIVE) Erythrocyte Sedimentation Rate 44 mm/hr (0-20) Prothrombin Time 11.4 sec (9.3-11.8) Prothrombin Time INR 1.08 (0.9-1.15) Activated Partial Thromboplast Time 29.5 SEC (24.5-34.5) Eosinophils (%) (Auto) 0.4 % (0.0-7.0) Eosinophils # (Auto) 0 10 ^3/uL (0-0.8) Basophils # (Auto) 0 10 ^3/uL (0-0.2) Lactate Dehydrogenase 1104 U/L (120-246) Lipase 26 U/L (12-53) Test 11/21/24 15:02 Urine Color Light-orange (Yellow) Urine Clarity Turbid (Clear) Urine pH 6.0 (5.0-9.0) Urine Specific [place] 1.036 (1.001-1.035) Urine Protein 2+ (Negative) Urine Ketones 2+ (Negative) Urine Blood 3+ /uL (Negative) Urine Nitrite Negative (Negative) Urine Bilirubin Negative (Negative) Urine Urobilinogen 2 mg/dL (Negative) Urine Leukocyte Esterase Negative /uL (Negative) Urine RBC 729 /hpf (0 - 4) Urine WBC 18 /hpf (0 - 5) Urine Squamous Epithelial Cells Few /hpf (<5) Urine Bacteria None seen /hpf (None Seen) Urine Hyaline Casts Many /lpf (0 - 2) Urine Mucus Few (None Seen) Urine Glucose Trace mg/dL (Normal) Urine Test Negative (Negative) Urine Opiates Screen Neg (NEGATIVE) Urine Fentanyl Screen Neg (NEGATIVE) Urine Barbiturates Screen Neg (NEGATIVE) Urine Phencyclidine Screen Neg (NEGATIVE) Urine Amphetamines Screen Neg (NEGATIVE) Urine Benzodiazepines Screen Neg (NEGATIVE) Urine Cocaine Screen Neg (NEGATIVE) Urine Cannabinoids Screen Neg (NEGATIVE) Other Laboratory Tests 11/22/24 05:22 Brief Hx & Hospital Course: see dictated note Condition at Discharge: Fair Final Diagnosis/Problems List acute leukemia Discharge Disposition: Acute Care Facility Discharge Instruct/Medications Diet: Regular Activity: No Restrictions, As Tolerated Follow Up/Referral: venkat workman pcp Medications: per jan Discharge Statement: "Patient was advised to return to the ER or call 911 if any headaches, dizziness, shortness of breath, chest pain, abdominal pain, bleeding, fevers, or worsening of medical condition. Patient was counseled about treatment plan, medications, possible side effects, patientverbalized understanding. All questions were answered to the best of my ability. This discharge took greater then 30 minutes in planning, reviewing documentation, counseling the patient, and discussing with other team members." ASSESSMENT ASSESSMENT Assessment acute leukemia Date of Service: Nov 22, 2024 Billing Provider: DIEGO COYLE MD Common Visit Codes: 30130-CVE/OBS DISCH DAY >30min DIEGO COYLE MD Nov 22, 2024 11:36
[2024-11-22] MEDS ORDERED: HYDROmorphone HCL 2 MG/ML VL/or syr IM ONE (11:45)
[2024-11-22] MEDS: SODIUM CHLORIDE 0.9% 1,000 ML IV SCH (11:45)
[2024-11-22] MEDS: ACETAMINOPHEN 325 MG TAB PO PRN (12:02)
[2024-11-22 12:05] LABS: Hepatitis A Ab IgM Negative; Hepatitis B Core IgM Negative (Negative); Hepatitis B Surface Antigen Negative (Negative)
[2024-11-22] MEDS: PIPERACILLIN-TAZOB 3.375GM 100 ML IV ONE (13:22)
[2024-11-22 13:24] LABS: Hepatitis C Antibody Negative (Negative)
[2024-11-22 13:25] LABS: Hepatitis B Surface Antibody Negative (Negative); Hepatitis B Surface Antigen Negative (Negative); Hepatitis C Antibody Negative (Negative)
[2024-11-22] MEDS: methylPREDNISolone SOD SUCC 125 MG/2 ML VL IV SCH (15:32)
[2024-11-22] MEDS: PIPERACILLIN-TAZOB 3.375GM 100 ML IV SCH (16:50)
[2024-11-22] MEDS: traMADol HCL 50 MG TAB PO PRN (17:26)
--- NOTE | 2024-11-22 18:37 | DVHDS ---
DATE OF DISCHARGE: 11/22/2024 TRANSFER SUMMARY DATE OF TRANSFER: 11/22/2024 HISTORY OF PRESENT ILLNESS: The patient is a 39-year-old lady who was admitted with complaints of severe back pain and has bleeding from the gums as well as nosebleeds. HOSPITAL COURSE: The patient was noted to be thrombocytopenic with anemia as well as low white count. The patient had elevated liver function tests. The LDH was elevated at 1100. The patient had a CT of abdomen and pelvis that showed possible stones in the gallbladder. MRCP, however, showed no biliary ductal dilatation and likely sludge in the gallbladder. The patient was seen in Hematology consult by Dr. Chester. 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 The patient will now be transferred to [facility] for further management. The patient's HIV and influenza tests have been negative. 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 * Severe thrombocytopenia, status post transfusion. * Anemia. * Severe back pain. * Transaminitis. Time spent in discharge planning and review of plan with the patient and reported application consultant was 41 minutes. MD MAXIM Benitez/MALINDA/JENNIFER TID: [id number] RECEIPT: [id number]
[2024-11-23 10:06] LABS: EBV Ab VCA IgG Antibody >600.0 U/mL (0.0-17.9); EBV Ab VCA IgM Antibody <36.0 U/mL (0.0-35.9); EBV Early Antigen IgG Antibody 40.8 U/mL (0.0-17.9)
[2024-11-23 14:06] LABS: Thyroxine (T4) 5.9 ug/dL (4.5-12.0)
== END 2024-11-22 17:36 | disposition short-term general hospital (02) | DRG 836 ==
LOC: ER 14:29 → EEVIPCON 14:29 → TELE 21:29 → TELE-CENTR 21:34 → CENTRAL 11-22 11:01
PROVIDERS: ATTEND Internal Medicine
PROC: 30233N1 Transfusion of Nonautologous Red Blood Cells into Peripheral Vein, Percutaneous Approach (ICD-10-PCS; principal; 2024-11-22)
DX: C92.00 Acute myeloblastic leukemia, not having achieved remission (principal); D69.6 Thrombocytopenia, unspecified; M54.50 Low back pain, unspecified; Z20.822 Contact with and (suspected) exposure to COVID-19; R74.01 Elevation of levels of liver transaminase levels; R79.89 Other specified abnormal findings of blood chemistry; R74.02 Elevation of levels of lactic acid dehydrogenase [LDH]; K80.20 Calculus of gallbladder without cholecystitis without obstruction; K06.8 Other specified disorders of gingiva and edentulous alveolar ridge
CPT/HCPCS: 36415; 74176; 74181; 80053; 80074; 80307; 81001; 81025; 82607; 83010; 83516; 83540; 83550; 83615; 83690; 84436; 84443; 85007; 85025; 85027; 85045; 85060; 85610; 85613; 85652; 85670; 85705; 85730; 85732; 86141; 86225; 86235; 86664; 86703; 86706; 86803; 86850; 86880; 86900; 86901; 87040; 87340; 87426; 87804; G0378; J2250; J2405; J2543